=== PATIENT | male | born 1990 | race Caucasian/White ===

== ENCOUNTER 2017-10-13 17:47 | Emergency (ER) | payer BC, OTHER ==
[~2017-10-13] VITALS: Ht 180.3 cm; Wt 86.8 kg
[2017-10-13 17:49] VITALS: TEMP 36.7; Ht 180.3 cm; Wt 86.8 kg
[2017-10-13] MEDS ORDERED: CEFTRIAXONE SOD 350MG/ML 1 GM VIAL IM ONE (18:45)
[2017-10-13] MEDS ORDERED: AZITHROMYCIN 250 MG TAB PO ONE (18:45)
[2017-10-13] MEDS ORDERED: SULFAMETHOXAZOLE/TRIMETHOPRIM DS 800/160MG TAB PO ONE (19:30)
[2017-10-13] MEDS ORDERED: SULF800T23 PO (19:39)
--- NOTE | 2017-10-13 19:42 | EMERGENCY ROOM VISIT NOTE ---
History First contact with patient: 18:26 Chief Complaint: STD MALE Stated Complaint: SENSATION IN URETHRA, CLEAR WHITE DISCHARGE Nursing Triage Summary: Pt states, "I have a discomfort in the uretha. I have slight white clear discharge and swelling towards the back of the testicles that started today. Slight burning when I urinate, towards the tip. I am concerned for a STI." History of Present Illness The patient is a 27 year old male who presents to the Emergency Room with complaints of dysuria and some purulent discharge from the penis that has gotten progressively worse throughout the week. The patient was also experiencing some right-sided testicular pain. He is concerned about STD. The patient had unprotected sex approximately 1 week ago. He denies any rectal pain or lower abdominal pain. No fever or chills. No hematuria. No flank pain. Lesions on the penis. Review of Systems 6 system review negative. Please see pertinent positives in the history of present illness section. Past Medical/Surgical History Asthma Social History Smoking Status: Never Smoker Alcohol Use: none Occupation Status: [employer] student Current/Historical Medications No Active Prescriptions or Reported Meds Physical Exam Vital Signs Date Time Temp Pulse Resp B/P (MAP) Pulse Ox O2 Delivery O2 Flow Rate FiO2 10/13/17 17:49 36.7 75 18 160/84 98 Room Air Physical Exam VITALS: Vitals are noted on the nurse's note and reviewed by myself. Vital signs stable. GENERAL: 27-year-old male, in no acute distress, nondiaphoretic, well-developed well-nourished. SKIN: The skin was without rashes, erythema, edema, or bruising. HEAD: Normocephalic atraumatic. ABDOMEN: Positive bowel sounds x 4.Soft, nontender, : No lesions noted. No significant purulent drainage from the urethra. No masses on the testicles bilaterally. No significant tenderness over the scrotum. MUSCULOSKELETAL: No muscle atrophy, erythema, or edema noted. Strength 5/5 throughout. NEURO: Patient was alert and oriented to person place and time. Normal sensation to touch. No focal neurological deficits. Medical Decision & Procedures Laboratory Results Test 10/13/17 18:35 10/13/17 18:38 Urine Color YELLOW Urine Appearance TURBID (CLEAR) Urine pH 7.0 (4.5-7.5) Urine Specific [place] 1.023 (1.000-1.030) Urine Protein NEG (NEG) Urine Glucose (UA) NEG (NEG) Urine Ketones NEG (NEG) Urine Occult Blood NEG (NEG) Urine Nitrite NEG (NEG) Urine Bilirubin NEG (NEG) Urine Urobilinogen NEG (NEG) Urine Leukocyte Esterase MODERATE (NEG) Urine WBC (Auto) >30 /hpf (0-5) Urine RBC (Auto) 0-4 /hpf (0-4) Urine Hyaline Casts (Auto) 1-5 /lpf (0-5) Urine Epithelial Cells (Auto) 10-20 /lpf (0-5) Urine Bacteria (Auto) NEG (NEG) Medications Administered Medications (Trade) Dose Ordered Sig/Afshin Route Start Time Stop Time Status Last Admin Dose Admin Ceftriaxone Sodium (Rocephin Im) 250 mg NOW ONCE IM 10/13/17 18:45 10/13/17 18:46 DC 10/13/17 19:29 250 MG Azithromycin (Zithromax Tab) 1,000 mg NOW ONCE PO 10/13/17 18:45 10/13/17 18:46 DC 10/13/17 19:28 1,000 MG Trimethoprim/ Sulfamethoxazole (Septra Ds 800/ 160MG Tab) 1 tab NOW ONCE PO 10/13/17 19:30 10/13/17 19:31 DC 10/13/17 19:33 1 TAB ED Course The patient was seen and examined A urinalysis and STD test were performed Findings were discussed with the patient He was given 1 dose of Rocephin IM. He was also given Zithromax 1 g p.o. Patient was also then given 1 dose of Bactrim Discharge instructions were reviewed, and he was discharged in good condition Medical Decision Differential diagnosis: STD, UTI, epididymitis, proctitis This patient is a 27-year-old male presents to the emergency department with purulent discharge and dysuria. On exam, there are no lesions on the external genitalia. No significant tenderness or masses on the scrotum. His urinalysis is consistent with greater than 30 white blood cells. STD testing was performed. The patient was covered with Rocephin and Zithromax in the emergency department. Given the testicular pain, the patient will be covered with a 10 day course of Bactrim in case this is a urinary tract infection/ epididymitis or proctitis. A urine culture was sent. The patient was comfortable with this plan. He will follow-up with [facility], and agrees to return with worsening symptoms. This chart was completed in part utilizing [employer] Voice Recognition software. Attempts were made to minimize the grammatical errors, random word insertions, pronoun errors and incomplete sentences. Any formal questions or concerns about the content, text or information contained within the body of this dictation should be directly addressed to the provider for clarification. Impression Primary Impression: UTI (urinary tract infection) Departure Information Dispostion Home / Self-Care Condition GOOD Prescriptions Sulfa/Trimethoprim (Bactrim Ds 800MG/160MG) Tab 1 TAB PO BID, #19 TAB Prov: Katy Mane PA-C 10/13/17 Referrals No Doctor, Assigned (PCP) Patient Instructions My [facility] Additional Instructions You have been evaluated in the emergency department for urinary tract infection and STD. It does appear that your urine is infected. At this point, is unclear if this is a UTI or an STD. You were treated for STDs in the emergency department. You have been given a prescription for Bactrim to take twice daily for the next 10 days. This is to cover for urinary tract infection. If there are any abnormalities in your cultures, you will be notified by phone No sexual activity for at least 2 weeks Please take ibuprofen 600 mg every 8 hours as needed for discomfort It is very important to stay well-hydrated. Increase fluids over the next several days Please follow-up with [facility] if the symptoms persist over the next 7 days Do not hesitate to return to the emergency department with any new, worsening or concerning symptom
[2017-10-13 19:55] VITALS: BP 124/65; PULSE 59; O2SAT 97
== END 2017-10-13 19:55 | disposition home or self-care (01) ==
LOC: C.EDB 17:49 → C.EDD 19:55
DX: N39.0 Urinary tract infection, site not specified (principal); J45.909 Unspecified asthma, uncomplicated

== ENCOUNTER → 2018-02-07 | Outpatient (CLI) | payer OTHER ==
[~2018-02-07] MED LIST: SULF800T23 PO
--- NOTE | 2018-02-07 13:05 | DIAGNOSTIC IMAGING REPORT ---
SCROTAL ULTRASOUND CLINICAL HISTORY: Right testicular pain and swelling. COMPARISON STUDY: None. TECHNIQUE: Grayscale and color and duplex Doppler sonography of the scrotum was performed. FINDINGS: The right testis measures 5.6 x 2.8 x 3.3 cm and the left testis measures 5.3 x 2.3 x 3.5 cm. Color flow within each testis is symmetric. There is no testicular mass. There is no evidence for epididymitis. There are few tiny bilateral epididymal cysts. There is a 5 mm left-sided scrotalith. IMPRESSION: 1. Normal sonographic appearance of the testes. No evidence for testicular torsion. No testicular mass. 2. No evidence for epididymitis. Electronically signed by: Go Poe M.D. 02/07/2018 1:04 PM Dictated Date/Time: 02/07/2018 1:03 PM
== END | disposition home or self-care (01) ==
LOC: C.ULTRBC 11:00
PROVIDERS: ATTEND Physician Assistant
DX: N50.89 Other specified disorders of the male genital organs (principal)